=== PATIENT | female | born 1935 | race Caucasian/White ===

== ENCOUNTER 2016-06-23 02:56 | Inpatient (IN) ==
[2016-06-23] MEDS ORDERED: 0.9 % SODIUM CHLORIDE 1,000 ML IV ONE ×2 (03:07→04:38)
[2016-06-23 04:03] LABS: Basophils # (Auto) 0.1 K/mcL (0.0-0.3); Basophils % (Auto) 0.7 % (0.0-2.0); Eosinophils # (Auto) 0.1 K/mcL (0.0-0.7); Eosinophils % (Auto) 0.8 % (0.0-7.0); Granulocytes % (Auto) 58.5 % (38.0-78.0); Lymphocytes # (Auto) 5.1 K/mcL (1.5-4.8); Lymphocytes % (Auto) 33.5 % (15.5-49.0); Mean Cell Volume 92.7 fL (80.0-100.0); Mean Corpuscular HGB Conc 32.8 g/dL (31.0-36.0); Mean Corpuscular Hemoglobin 30.4 pg (26.0-34.0); Monocytes % (Auto) 6.5 % (1.0-9.0); Platelet Count 232 K/mcL (140-440); RBC 4.53 M/mcL (4.00-5.20); Red Cell Distribution Width 13.3 % (11.5-14.5)
[2016-06-23 05:28] LABS: ALT/SGPT 43 U/l (0-40); Albumin 3.4 gm/dL (3.2-5.2); Albumin/Globulin Ratio 1.5 (1.0-2.3); Alkaline Phosphatase 137 U/L (39-117); Blood Urea Nitrogen 35 mg/dl (8-23)
[2016-06-23 05:55] LABS: Appearance,Urine HAZY; Bacteria,Urine 0 /hpf (0); Bilirubin,Urine NEG (NEG); Color,Urine AMBER; Glucose,Urine (UA) NEGATIVE (NEG); Leukocyte Esterase,Urine NEG /uL (NEG); Mucus,Urine MANY /hpf (0); Nitrate,Urine NEG (NEG); Protein,Urine 100 mg/dL (NEG); Urine Blood 0.03 mg/dL (<0.03); Urine RBC 41 /hpf (0-1); Urine Squamous Epithelial Cell 0 /hpf (0-4); Urine WBC 9 /hpf (0-4)
[2016-06-23] MEDS ORDERED: LEVOFLOXACIN 500 MG/100 ML BAG IV ONE (07:01)
--- NOTE | 2016-06-23 07:05 | Emergency Department Note ---
CPR HPI - General Chief Complaint: Cardiac Arrest/CPR Stated Complaint: cariac arrest Time Seen by Provider: 06/23/16 03:04 Source: EMS Mode of arrival: EMS Limitations: no limitations - History of Present Illness HPI Narrative: This [facility] to be in agonal respirations and without pulse. EMS was called and CPR was initiated. She did receive epinephrine and had return of pulse and blood pressure. But she had an estimated down time of 30 minutes. She was intubated by EMS and on arrival in emergency room her blood pressure was quite high from the epinephrine that she had received. She had no response to painful stimuli and her pupils were fixed and midposition. - Related Data Home Medications Medication Instructions Recorded Confirmed Carbidopa/Levodopa 10/100 [Sinemet 1 tab PO DAILY 01/06/15 06/23/16 10/100] Carbidopa/Levodopa 25/100 [Sinemet 1 tab PO QID 01/06/15 06/23/16 25/100] Gabapentin [Neurontin] 600 mg PO HS 01/06/15 06/23/16 Ubidecarenone [Coenzyme Q10] 50 mg PO DAILY 01/06/15 06/23/16 Acetaminophen [Tylenol Extra 500 mg PO Q4H PRN 03/06/15 06/23/16 Strength] [id number] [Beano] 300 unit PO TIDP PRN 03/06/15 06/23/16 Cholecalciferol (Vitamin D3) 1,000 unit PO DAILY 03/06/15 06/23/16 [Vitamin D] Famotidine [Pepcid] 20 mg PO HS 03/06/15 06/23/16 Polyethylene Glycol 3350 [Miralax] 17 gm PO DAILY 03/06/15 06/23/16 diphenhydramine 25 mg capsule 50 mg PO TID-QID PRN 02/19/16 06/23/16 ibuprofen 200 mg tablet 200 mg PO TID PRN 04/07/16 06/23/16 Previous Rx's Medication Instructions Recorded venlafaxine 37.5 mg tablet 37.5 mg PO BID #60 tab 04/01/16 buspirone 10 mg tablet 10 mg PO TID #90 tab 05/12/16 clonazepam 0.5 mg disintegrating 0.5 mg PO BID PRN #60 tab 05/14/16 tablet docusate sodium 100 mg tablet 100 mg PO DAILY #30 tab 05/26/16 omeprazole 20 mg capsule,delayed 20 mg PO QDAY #90 cap 06/09/16 release Allergies Allergy/AdvReac Type Severity Reaction Status Date / Time hydrocodone Allergy Intermediate Unknown Verified 05/14/16 11:31 iodine Allergy Intermediate Unknown Verified 05/14/16 11:31 Review of Systems Limitations: ROS unobtainable due to patients medical condition CPR PMH - Past Medical History Medical history: Reports: arthritis, GERD, hypertension, osteoporosis, other ( parkinsons) Surgical history ED: Reports: appendectomy, herniorrhaphy, hip replacement Psychiatric history: Reports: anxiety Physical Exam - General Limitations: altered mental status, physical limitation General appearance: other (comatose) - Head Head exam: atraumatic - Eye Eye exam: Present: other (pupils are mid position and fixed) - ENT ENT exam: other (intubated) - Neck Neck exam: Present: normal inspection - Chest Chest inspection: Present: normal inspection - Respiratory Respiratory exam: Present: normal lung sounds bilaterally - Cardiovascular Cardiovascular exam: Present: regular rate, normal rhythm, normal heart sounds - Abdominal Exam Abdominal exam: Present: soft. Absent: distention, tenderness - Neurological Exam Neurological exam: Present: other (no response to painful stimuli) - Skin Skin exam: Present: warm, dry Course Vital Signs Pulse Rate 132 H 06/23/16 02:58 Respiratory Rate 23 06/23/16 02:58 Blood Pressure 210/110 06/23/16 02:58 Temperature 100.5 F H 06/23/16 06:43 Pulse Rate 72 06/23/16 06:43 Respiratory Rate 13 06/23/16 06:43 Blood Pressure 160/88 06/23/16 06:43 Pulse Oximetry (%) 99 06/23/16 06:43 Cardiac Arrest/CPR - MDM Narrative Medical decision making narrative: This patient remained emergency room intubated for 4 hours. She continued to have no neurologic response. I informed the family that her prognosis for recovery was dismal. They're understanding of this. Apparently there are 7 siblings in the family the need to be consulted regarding further care. Dr. Padilla was consulted and will put the patient in the ICU. - Lab Data Lab results reviewed: Yes I reviewed the patient's lab results. Result diagrams: 06/23/16 03:11 06/23/16 04:30 Lab Results 06/23/16 06/23/16 06/23/16 Range/Units 03:11 03:11 03:11 WBC 15.2 H (4.5-11.0) K/mcL RBC 4.53 (4.00-5.20) M/mcL Hgb 13.8 (12.0-15.0) g/dL Hct 42.0 (36.0-48.0) % POC Hct (36.0-48.0) % MCV 92.7 (80.0-100.0) fL MCH 30.4 (26.0-34.0) pg MCHC 32.8 (31.0-36.0) g/dL RDW 13.3 (11.5-14.5) % Plt Count 232 (140-440) K/mcL MPV 8.4 (7.4-10.4) fL Gran % 58.5 (38.0-78.0) % Lymph % (Auto) 33.5 (15.5-49.0) % [place] % (Auto) 6.5 (1.0-9.0) % Eos % (Auto) 0.8 (0.0-7.0) % Baso % (Auto) 0.7 (0.0-2.0) % Gran # 8.9 H (1.8-8.0) K/mcL Lymph # 5.1 H (1.5-4.8) K/mcL [place] # 1.0 H (0.1-0.9) K/mcL Eos # 0.1 (0.0-0.7) K/mcL Baso # 0.1 (0.0-0.3) K/mcL VBG Lactic Acid (0.5-2.2) mmol/L POC Sodium (133-145) mmol/L Sodium TNP POC Potassium (3.3-5.1) mmol/L Potassium TNP POC Chloride (96-108) mmol/L Chloride TNP Carbon Dioxide TNP POC Total CO2 (22-30) mmol/L Anion Gap TNP POC BUN (8-23) mg/dl BUN TNP Creatinine TNP POC Creatinine (0.6-1.1) mg/dl GFR Calculation TNP Glucose TNP POC Glucose (70-105) mg/dL Calcium TNP POC WB Ioniz Calcium (1.16-1.32) mmol/L Total Bilirubin TNP AST TNP ALT TNP Alkaline Phosphatase TNP Troponin T TNP Total Protein TNP Albumin TNP Globulin TNP Albumin/Globulin Ratio TNP Urine Color Urine Appearance Urine pH (5.0-9.0) Ur Specific [place] (1.000-1.035) Urine Protein (NEG) mg/dL Urine Glucose (UA) (NEG) mg/dL Urine Ketones (NEG) mg/dL Urine Occult Blood (<0.03) mg/dL Urine Nitrate (NEG) Urine Bilirubin (NEG) mg/dL Urine Urobilinogen (NEG) mg/dL Ur Leukocyte Esterase (NEG) /uL Urine RBC (0-1) /hpf Urine WBC (0-4) /hpf Ur Squamous Epith Cells (0-4) /hpf Urine Bacteria (0) /hpf Urine Mucus (0) /hpf Ur Culture Indicated? 06/23/16 06/23/16 06/23/16 Range/Units 04:30 04:30 04:30 WBC (4.5-11.0) K/mcL RBC (4.00-5.20) M/mcL Hgb (12.0-15.0) g/dL Hct (36.0-48.0) % POC Hct 37.0 (36.0-48.0) % MCV (80.0-100.0) fL MCH (26.0-34.0) pg MCHC (31.0-36.0) g/dL RDW (11.5-14.5) % Plt Count (140-440) K/mcL MPV (7.4-10.4) fL Gran % (38.0-78.0) % Lymph % (Auto) (15.5-49.0) % [place] % (Auto) (1.0-9.0) % Eos % (Auto) (0.0-7.0) % Baso % (Auto) (0.0-2.0) % Gran # (1.8-8.0) K/mcL Lymph # (1.5-4.8) K/mcL [place] # (0.1-0.9) K/mcL Eos # (0.0-0.7) K/mcL Baso # (0.0-0.3) K/mcL VBG Lactic Acid 4.4 H* (0.5-2.2) mmol/L POC Sodium 143 (133-145) mmol/L Sodium 145 POC Potassium 3.4 (3.3-5.1) mmol/L Potassium 3.4 POC Chloride 105 (96-108) mmol/L Chloride 105 Carbon Dioxide 24 POC Total CO2 27 (22-30) mmol/L Anion Gap 16.0 POC BUN 38 H (8-23) mg/dl BUN 35 H Creatinine 1.3 H POC Creatinine 1.1 (0.6-1.1) mg/dl GFR Calculation 38 Glucose 194 H POC Glucose 177 H (70-105) mg/dL Calcium 8.5 L POC WB Ioniz Calcium 1.17 (1.16-1.32) mmol/L Total Bilirubin 0.5 AST 179 H ALT 43 H Alkaline Phosphatase 137 H Troponin T 0.15 H* Total Protein 5.6 L Albumin 3.4 Globulin 2.2 Albumin/Globulin Ratio 1.5 Urine Color Urine Appearance Urine pH (5.0-9.0) Ur Specific [place] (1.000-1.035) Urine Protein (NEG) mg/dL Urine Glucose (UA) (NEG) mg/dL Urine Ketones (NEG) mg/dL Urine Occult Blood (<0.03) mg/dL Urine Nitrate (NEG) Urine Bilirubin (NEG) mg/dL Urine Urobilinogen (NEG) mg/dL Ur Leukocyte Esterase (NEG) /uL Urine RBC (0-1) /hpf Urine WBC (0-4) /hpf Ur Squamous Epith Cells (0-4) /hpf Urine Bacteria (0) /hpf Urine Mucus (0) /hpf Ur Culture Indicated? 06/23/16 Range/Units 04:42 WBC (4.5-11.0) K/mcL RBC (4.00-5.20) M/mcL Hgb (12.0-15.0) g/dL Hct (36.0-48.0) % POC Hct (36.0-48.0) % MCV (80.0-100.0) fL MCH (26.0-34.0) pg MCHC (31.0-36.0) g/dL RDW (11.5-14.5) % Plt Count (140-440) K/mcL MPV (7.4-10.4) fL Gran % (38.0-78.0) % Lymph % (Auto) (15.5-49.0) % [place] % (Auto) (1.0-9.0) % Eos % (Auto) (0.0-7.0) % Baso % (Auto) (0.0-2.0) % Gran # (1.8-8.0) K/mcL Lymph # (1.5-4.8) K/mcL [place] # (0.1-0.9) K/mcL Eos # (0.0-0.7) K/mcL Baso # (0.0-0.3) K/mcL VBG Lactic Acid (0.5-2.2) mmol/L POC Sodium (133-145) mmol/L Sodium POC Potassium (3.3-5.1) mmol/L Potassium POC Chloride (96-108) mmol/L Chloride Carbon Dioxide POC Total CO2 (22-30) mmol/L Anion Gap POC BUN (8-23) mg/dl BUN Creatinine POC Creatinine (0.6-1.1) mg/dl GFR Calculation Glucose POC Glucose (70-105) mg/dL Calcium POC WB Ioniz Calcium (1.16-1.32) mmol/L Total Bilirubin AST ALT Alkaline Phosphatase Troponin T Total Protein Albumin Globulin Albumin/Globulin Ratio Urine Color [place] Urine Appearance Hazy Urine pH 5.0 (5.0-9.0) Ur Specific [place] 1.020 (1.000-1.035) Urine Protein 100 A (NEG) mg/dL Urine Glucose (UA) Negative (NEG) mg/dL Urine Ketones 5/tr A (NEG) mg/dL Urine Occult Blood 0.03 A (<0.03) mg/dL Urine Nitrate Neg (NEG) Urine Bilirubin Neg (NEG) mg/dL Urine Urobilinogen 4.0 A (NEG) mg/dL Ur Leukocyte Esterase Neg (NEG) /uL Urine RBC 41 H (0-1) /hpf Urine WBC 9 H (0-4) /hpf Ur Squamous Epith Cells 0 (0-4) /hpf Urine Bacteria 0 (0) /hpf Urine Mucus Many A (0) /hpf Ur Culture Indicated? Yes - Radiology Data Radiology results reviewed: Yes I reviewed the patient's radiology results. (ET tube was moved back 2 cm. lungs unremarkable) Disposition Clinical Impression: Cardiac arrest Disposition: Xfer As Inpt ([facility]) Condition: Critical Referrals: Luis Hudson DO [Primary Care Provider] - Time of Disposition: 07:13
--- NOTE | 2016-06-23 08:57 | XRay Report ---
HISTORY: Reason for Exam:tube placement and unresponsive FINDINGS: The endotracheal tube is well-positioned. There are multiple overlying artifacts. The lungs are clear. The heart size is normal. Moderate compression fracture is present at T8. This is new since 01/17/10. IMPRESSION: No complication following intubation Interpreted and Authenticated by: Omer Stahl 06/23/16
[2016-06-23] MEDS ORDERED: POTASSIUM CHLORIDE 20 MEQ PACKET PO PRN (09:23)
[2016-06-23] MEDS ORDERED: ACETAMINOPHEN 1,000 MG/100 ML BOTTLE IV PRN (09:23)
[2016-06-23] MEDS ORDERED: DOCUSATE SODIUM 100 MG CAPSULE PO SCH (09:23)
[2016-06-23] MEDS ORDERED: HEPARIN/NS 500 ML IV SCH (09:23)
[2016-06-23] MEDS ORDERED: MULTIVIT,THER IRON,CA,FA & MIN 1 TABLET PO SCH (09:23)
[2016-06-23] MEDS ORDERED: 0.9 % SODIUM CHLORIDE 1,000 ML IV SCH (09:23)
[2016-06-23] MEDS ORDERED: ONDANSETRON 4 MG/2 ML VIAL IV PRN (09:23)
[2016-06-23] MEDS ORDERED: PROPOFOL 1,000 MG in PREMIX 1 BAG IV SCH (09:23)
[2016-06-23] MEDS ORDERED: VANCOMYCIN PER PHARMACY IV ONE (09:23)
[2016-06-23] MEDS ORDERED: CHLORHEXIDINE GLUCONATE 1 ML ORAL.SOL SWABMOUTH SCH (09:23)
[2016-06-23] MEDS ORDERED: MAGNESIUM SULFATE 2 GM/50 ML BAG IV PRN (09:23)
[2016-06-23] MEDS ORDERED: HEPARIN 5,000 UNIT/ML VIAL SQ SCH (09:23)
[2016-06-23] MEDS ORDERED: fentaNYL 2,500 MCG in 0.9 % SODIUM CHLORIDE 200 ML IV SCH (10:00)
[2016-06-23] MEDS ORDERED: VANCOMYCIN 750 MG in 0.9 % SODIUM CHLORIDE 250 ML IV SCH (11:00)
--- NOTE | 2016-06-23 11:01 | Internal Med Progress Note ---
Medical - Auxillary Note - Subjective Patient Information: Note initiated : 06/23/16 at 10:59 am Service Date, if different from initiated Date: [] Patient: Dena Aj 81 y/o F admitted on 06/23/16 for cariac arrest. Chief Complaint: [] Vital Signs Temp Pulse Resp BP Pulse Ox 102.2 F H 75 14 184/108 99 06/23/16 09:10 06/23/16 08:42 06/23/16 09:19 06/23/16 09:10 06/23/16 09:19 Period Temp Pulse Resp BP Sys/[place] Pulse Ox Last 24 Hr 102.2 F 14-18 184/108 99-99 Intake and Output 06/22/16 06/23/16 06/23/16 21:59 05:59 13:59 Intake Total 100 / 100 Output Total 1000 / 1000 Balance -900 / -900 Weight 106 lb 8 oz Patient Weight 06/24/16 05:59 Weight 106 lb 8 oz Medications Chlorhexidine Gluconate (Peridex) 15 ml SWABMOUTH BID DAFNE Docusate Sodium (Colace) 100 mg PO BID DAFNE Heparin Sodium (Porcine) (Heparin) 5,000 unit SQ Q12 DAFNE Heparin Sodium/Sodium Chloride (Heparin/Ns) 500 mls @ 0 mls/hr IV .Q0M DAFNE; KVO PRN Reason: Protocol Levofloxacin (Levaquin) 750 mg in 150 mls @ 100 mls/hr IV Q48H DAFNE Magnesium Sulfate (Magnesium Sulfate) 2 gm in 50 mls @ 50 mls/hr IV UD PRN PRN Reason: MG = or < 1.7 Sodium Chloride (Sodium Chloride 0.9%) 1,000 mls @ 50 mls/hr IV .Q20H [facility] Stop: 06/25/16 21:22 Acetaminophen (Ofirmev) 1,000 mg in 100 mls @ 200 mls/hr IV Q6HP PRN PRN Reason: PAIN/FEVER > 101 Piperacillin Sod/Tazobactam (Sod 2.25 gm/ Dextrose) 50 mls @ 100 mls/hr IV Q6H DAFNE Propofol 1,000 mg/ Premix 100 mls @ 1.56 mls/hr IV .Q24H DAFNE; 5 MCG/KG/MIN PRN Reason: Protocol Fentanyl 2,500 mcg/ Sodium (Chloride) 250 mls @ 2.5 mls/hr IV Q24H DAFNE; 25 MCG/ HR PRN Reason: Protocol Vancomycin HCl 750 mg/ Sodium (Chloride) 250 mls @ 250 mls/hr IV Q24H DAFNE Iron Carb/Multivit/[place]/Folic Acid (Multivitamin W/Minerals) 1 tab PO DAILY DAFNE Ondansetron HCl (Zofran) 4 mg IV Q4-6HP PRN PRN Reason: Nausea And Vomiting Potassium Chloride (Klor-Con) 40 meq PO DAILYP PRN PRN Reason: K+ < 3.5 Sodium Chloride (Saline Flush) 10 ml IV Q8 DAFNE Abnormal Labs 06/23/16 09:40 VBG Lactic Acid 2.8 H ASSESSMENT * Post cardiac arrest * Mechanical ventilation for hypercapnic respiratory failure * Severe sepsis * Anoxic brain injury plan * Family expresses desires to make patient comfortable and withdraw all life support measures. no code comfort care papers were signed by family/POA and documented in chart. * discontinue mechanical ventilation, extubated to room air * aggressive pain and symptom management for end of life care
[2016-06-23 11:31] LABS: Hemoglobin A1C 5.2 % HGB (4.0-6.0)
[2016-06-23] MEDS: PIPERACILLIN SODIUM/TAZOBACTAM 2.25 GM in DEXTROSE 5% IN WATER 50 ML IV SCH ×2 (11:47→14:34)
[2016-06-23] MEDS ORDERED: 0.9 % SODIUM CHLORIDE 10 ML SYRINGE IV SCH (14:00)
--- NOTE | 2016-06-23 15:11 | History and Physical Report ---
DATE OF ADMISSION: 06/23/2016 REASON FOR ADMISSION: The patient was found unresponsive, CODE Blue cardiac arrest, status post resuscitation on mechanical ventilation. HISTORY OF CHIEF COMPLAINT: The patient is an 81-year-old resident at [facility] and was found unresponsive by the staff, pulseless and subsequently EMS was called. Patient was resuscitated after 30 minutes of CPR with return of spontaneous circulation. She was subsequently brought to [facility] ER and intubated on mechanical ventilation. Initial workup was significant for elevated lactate along with white count of 15,000 and likely sepsis with a fever. The patient was showing signs of posturing. The patient was not started on hypothermic protocol after ER physician reviewed guidelines. Hospitalist Service was consulted in light of patient's family's wishes for continued aggressive measures. At the time of examination, multiple family members were present. Most of the history was obtained from review of medical records and from ER physician. The patient is in an unresponsive state and on mechanical ventilation. No further history could be obtained as to the course of events prior to being unresponsive. She was last seen normal the night prior. The patient remained in the ER for over 4 hours as per ER physician with no neurological response. Extremely poor prognosis was discussed by ER physician, Dr. Foley, with the family. Family wanted to reach a consensus after all family members were available for further goals of care. At this time, they would want patient to be admitted to the ICU and not transferred to tertiary center. Subsequently Hospitalist Service was consulted for admission. REVIEW OF SYSTEMS: Ten-point review of systems could not be performed. PAST MEDICAL HISTORY: 1. Parkinson's disease. 2. Dementia. 3. Neuropathy. 4. GERD. 5. Anxiety disorder. CURRENT MEDICATIONS: 1. Clonazepam 0.5 mg b.i.d. p.r.n. 2. BuSpar 10 mg t.i.d. 3. Venlafaxine 37.5 mg .i.d. 4. Gabapentin 600 mg at hs. 5. Carbidopa/Levodopa 25/100 1 tab q.i.d. along with 10/100 daily. ALLERGIES: 1. HYDROCODONE. 2. IODINE. SOCIAL HISTORY: The patient is retired and lives at [facility]. She is . She has 7 kids. No history of smoking or alcoholism. She sees primary care physician, Dr. Hudson. CODE STATUS: FULL CODE. FAMILY HISTORY: None relevant to presenting symptom. PHYSICAL EXAMINATION: GENERAL: The patient is on mechanical ventilation, flexor posturing, intermittent myoclonic jerks. HEENT: Pupils are barely minimally responsive. Doll's Eye movements positive. Oral cavity otherwise dry. No ear or nose discharge. NECK: No lymphadenopathy. HEART: S1, S2 regular rhythm, bradycardia. CHEST: Diminished breath sounds, but bilaterally symmetrical. ABDOMEN: Soft. LOWER EXTREMITIES: No cyanosis or clubbing. No joint swelling. SKIN: No suspicious lesions. The patient has been on mechanical ventilation with no psych or neuro assessment possible except for flexor posturing. LABS AND IMAGING: White count 15.2, hemoglobin 13.8, platelets 232, lactic acid 4.4, sodium 143, potassium 3.4, creatinine 1.3, BUN 38. Troponin 0.15, calcium 8.5. UA 9 WBCs with 41 RBCs. ABG 7.28/53. X-ray chest: ET tube to well-positioned. ASSESSMENT AND PLAN: An 81-year-old post-code cardiac arrest on mechanical ventilation. 1. Post-cardiac arrest of unclear etiology, likely sepsis. The patient is on mechanical ventilation. Start hypothermia protocol. It is to be noted that the patient was not started on hypothermia protocol by ER physician. However, in light of spontaneous cardiac arrest and return of spontaneous circulation, the patient will be started on hyperkalemia protocol and we will initiate transfer to tertiary center once available. 2. Severe sepsis, elevated lactate and white count. Continue management per guidelines, cultures, antibiotics, crystalloids and pressures. 3. Anoxic brain injury initiating hyperkalemia protocol. Continue monitoring and transfer to neuro center. 4. Hypercapnic respiratory failure on mechanical ventilation. Continue management per protocol. PLAN FOR TODAY: 1. Admit as inpatient in ICU in light of N[place]ANSETT score over 25, critically ill and high risk mortality. Family is aware of extremely poor prognosis. 2. Tertiary center transfer coordination. 3. Mechanical ventilation, hypothermic protocol and sepsis management to continue per guidelines. Total time spent on history and physical over 55 minutes, reviewing past medical records and discussion with physicians and family. In addition, 100 minutes critical exam spent on stabilizing patient transferring to ICU on vent management along with initiation of hypothermia protocol and transfer coordination. AA:lg Job ID: [id number] Doc ID: [id number] Yusef MOSS
--- NOTE | 2016-06-24 06:57 | Discharge Summary ---
DATE OF ADMISSION: 06/23/2016 DATE OF DISCHARGE: 06/23/2016 SUMMARY: CAUSE OF : Cardiorespiratory arrest. EVENTS LEADING TO CAUSE OF : Unclear; however, patient underwent cardiac resuscitative efforts by EMS and was brought in on mechanical ventilation after return of spontaneous circulation. BRIEF HOSPITAL COURSE: The patient was on mechanical ventilation with significant anoxic brain injury, severe sepsis along with hypercapnic hypoxic respiratory failure. Family eventually decided to make patient comfortable and refused transfer to tertiary center for further evaluation in light of cardiac arrest. The patient was subsequently extubated to room air and succumbed within 20 minutes. Multiple family members were present. Pastoral services were offered. AA:[email or web address] Job ID: [id number] Doc ID: [id number] Yusef MOSS
[2016-06-25] MEDS ORDERED: LEVOFLOXACIN 750 MG/150 ML BAG IV SCH (10:00)
--- NOTE | 2016-06-29 17:57 | Event Note ---
The patient certificiate was not completed, by the previous hospitalist, and therefore came to my Que the patients chart reviewed, It seems that the patient presented with Cardiac arrest, and based on the chart review it seems that the patient likely had severe sepsis which preceded the cardiac arrest I have filled out the certificate stating cause of as Cardiac arrest and underlying etiology as severe sepsis. As based on my chart review I was not able to find out a more definitive etiology for the patients . I have not seen or examined the patient, certificate was filled as I am the cross covering physician at this time.
== END 2016-06-23 16:50 | disposition expired | DRG 296 ==
LOC: ED 02:56 → ICU 08:45
PROVIDERS: ADMIT Internal Medicine; ATTEND Internal Medicine